=== PATIENT | female | born 1985 | race Caucasian/White ===

== ENCOUNTER 2017-02-14 14:16 | Emergency (ER) | payer SELFPAY ==
[2017-02-14 15:53] LABS: HEMOGLOBIN 14.3 gm/dl (12.3-15.3); RED BLOOD COUNT 4.54 M/UL (4.00-5.10); WHITE BLOOD COUNT 9.8 K/UL (4.5-11.0)
[2017-02-14 16:10] LABS: BUN/CREATININE RATIO 23 (0-10)
== END 2017-02-14 17:45 | disposition home or self-care (01) ==
LOC: ER1 14:16
PROVIDERS: Physician Assistant
DX: O21.0 Mild hyperemesis gravidarum (principal); O99.89 Other specified diseases and conditions complicating pregnancy, childbirth and the puerperium; R10.2 Pelvic and perineal pain; Z3A.01 Less than 8 weeks gestation of pregnancy
CPT/HCPCS: 36415; 76830; 80053; 84702; 85025; 96374; 99284; J2550; J7030; J7050

== ENCOUNTER → 2021-05-17 | Outpatient (CLI) | payer OTHER ==
[~2021-05-17] MED LIST: COLACE 100MG C100 MG PO
== END ==
LOC: RAD 16:02
DX: R07.9 Chest pain, unspecified (principal); R05 Cough; M54.2 Cervicalgia; M54.5 Low back pain; M54.6 Pain in thoracic spine
CPT/HCPCS: 72050; 72072; 72110

== ENCOUNTER → 2021-05-24 | Outpatient (CLI) | payer OTHER | LOC: RAD 16:57 | DX: R05 Cough (principal); M25.561 Pain in right knee | CPT/HCPCS: 71046; 73562 ==

== ENCOUNTER 2021-07-26 18:59 | Emergency (ER) | payer OTHER ==
[2021-07-26 19:38] LABS: HEMOGLOBIN 15.1 gm/dl (12.3-15.3); RED BLOOD COUNT 4.54 M/UL (4.00-5.10); WHITE BLOOD COUNT 11.3 K/UL (4.5-11.0)
[2021-07-26 19:56] LABS: BUN/CREATININE RATIO 13 (0-10)
== END 2021-07-26 20:39 | disposition home or self-care (01) ==
LOC: ER1 18:59
PROVIDERS: Physician Assistant Medical
DX: R07.9 Chest pain, unspecified (principal); Z87.442 Personal history of urinary calculi; F17.210 Nicotine dependence, cigarettes, uncomplicated
CPT/HCPCS: 80053; 82550; 82553; 83690; 83874; 84484; 85025; 93005; 99285

== ENCOUNTER → 2022-01-30 | Outpatient (CLI) | payer OTHER | LOC: RAD 13:19 | DX: M54.50 Low back pain, unspecified (principal); R05.9 Cough, unspecified; M50.322 Other cervical disc degeneration at C5-C6 level | CPT/HCPCS: 71046; 72050; 72072; 72110 ==